=== PATIENT | male | born 1950 | race Caucasian/White ===

== ENCOUNTER 2022-05-30 09:37 | Inpatient (IN) | payer BC, MEDICARE ==
[~2022-05-30] VITALS: Ht 190.5 cm; Wt 85.3 kg
[~2022-05-30 09:37] MED LIST: Z.0.CRESTOR10 MG PO; Z.0.DEXILANT60 MG PO; Z.0.LISINOPRIL10 MG PO; Z.0.ZOLPIDEM TARTRA1 PO; [UNRECOGNIZED DRUG - OTHER] PO
[2022-05-30] MEDS ORDERED: SODIUM CHLORIDE 0.9% 1000ML 1,000 ML IV STA ×2 (10:56→12:42)
[2022-05-30 11:48] LABS: BASOPHILS % 0.4 % (0.0-1.0); EOSINOPHILS # (AUTO) 0.2 (0.0-0.4); EOSINOPHILS % 2.2 % (0.0-6.0); HEMATOCRIT 41.4 % (38.2-49.6); HEMOGLOBIN 13.3 g/dL (14.0-18.0); LYMPHOCYTES # (AUTO) 1.6 (1.0-3.2); LYMPHOCYTES % 16.3 % (18.0-39.1); MEAN CORPUSCULAR HEMOGLOBIN 32.1 pg (28-32); MEAN CORPUSCULAR HGB CONC 32.1 g/dL (31-35); MONOCYTES # (AUTO) 0.9 (0.2-0.8); MONOCYTES % 9.5 % (4.4-11.3); PLATELET COUNT 201 x10e3/uL (140-360); RED BLOOD COUNT 4.14 x10e6/uL (4.3-5.7); RED CELL DISTRIBUTION WIDTH 14.3 % (11.7-14.4)
[2022-05-30 12:10] LABS: INR 0.87; PROTHROMBIN TIME 12.7 seconds (11.9-14.5)
[2022-05-30 12:11] LABS: PARTIAL THROMBOPLASTIN TIME 24.5 seconds (23.8-35.5)
[2022-05-30 12:20] LABS: ALANINE AMINOTRANSFERASE 36 IU/L (0-55); ALBUMIN 3.9 g/dL (3.5-5.0); ALKALINE PHOSPHATASE 73 IU/L (40-150); ANION GAP 16.5 mmol/L (8-16); BLOOD UREA NITROGEN 42 mg/dL (7-26); BUN/CREATININE RATIO 13 (6-25); CALCIUM 9.9 mg/dL (8.4-10.2); CARBON DIOXIDE 28 mmol/L (22-29); CHLORIDE 97 mmol/L (98-107); CREATINE KINASE 179 IU/L (30-200); CREATININE, SERUM 3.22 mg/dL (0.72-1.25); GLUCOSE 87 mg/dL (74-118); POTASSIUM 5.5 mmol/L (3.5-5.1); SODIUM 136 mmol/L (136-145)
[2022-05-30 12:28] LABS: CLARITY,URINE SL CLOUDY (CLEAR); COLOR,URINE YELLOW (YELLOW); LEUKOCYTE ESTERASE ,URINE TRACE (NEGATIVE); NITRITE,URINE NEGATIVE (NEGATIVE); PROTEIN,URINE DIPSTICK 1+ (NEGATIVE)
[2022-05-30 12:29] LABS: BACTERIA,URINE MODERATE /HPF; EPITHELIAL CELLS,URINE FEW /LPF; KETONES,URINE TRACE (NEGATIVE); URINE UROBILINOGEN 0.2 mg/dL (0.2 - 1); WBC,URINE (MAN) >50 /HPF (0-5)
[2022-05-30] MEDS ORDERED: ONDANSETRON HCL INJ 2MG/ML 2ML 2 MG/ML VIAL IV PRN (13:00)
[2022-05-30] MEDS: SODIUM CHLORIDE 0.9% 1000ML 1,000 ML IV SCH ×2 (14:50→23:01)
[2022-05-30 22:22] VITALS: BP 149/71
[2022-05-30 22:38] VITALS: BP 149/71
[2022-05-31 04:00] VITALS: BP 148/79
[2022-05-31 04:33] LABS: CREATINE KINASE MB 1.9 ng/mL (0-5.0)
[2022-05-31 06:52] LABS: BASOPHILS % 0.5 % (0.0-1.0); EOSINOPHILS # (AUTO) 0.1 (0.0-0.4); EOSINOPHILS % 1.9 % (0.0-6.0); HEMATOCRIT 36.9 % (38.2-49.6); HEMOGLOBIN 12.1 g/dL (14.0-18.0); LYMPHOCYTES # (AUTO) 1.1 (1.0-3.2); LYMPHOCYTES % 17.4 % (18.0-39.1); MEAN CORPUSCULAR HEMOGLOBIN 32.5 pg (28-32); MEAN CORPUSCULAR HGB CONC 32.8 g/dL (31-35); MEAN CORPUSCULAR VOLUME 99.2 fL (81-99); MONOCYTES # (AUTO) 0.6 (0.2-0.8); MONOCYTES % 8.9 % (4.4-11.3); NEUTROPHILS # (AUTO) 4.5 (2.1-6.9); NEUTROPHILS % 70.8 % (38.7-80.0); PLATELET COUNT 157 x10e3/uL (140-360); RED BLOOD COUNT 3.72 x10e6/uL (4.3-5.7)
[2022-05-31 07:24] LABS: ALBUMIN 3.4 g/dL (3.5-5.0); ALBUMIN/GLOBULIN RATIO 1.4 (0.8-2.0); ANION GAP 10.8 mmol/L (8-16); CALCIUM 8.5 mg/dL (8.4-10.2); CREATININE, SERUM 1.82 mg/dL (0.72-1.25); POTASSIUM 4.8 mmol/L (3.5-5.1)
[2022-05-31 08:20] VITALS: BP 138/71
[2022-05-31] MEDS: SODIUM CHLORIDE 0.9% 1000ML 1,000 ML IV SCH ×2 (08:38→19:00)
[2022-05-31 11:44] VITALS: BP 138/71
[2022-05-31 12:33] VITALS: BP 139/66
[2022-05-31 14:08] LABS: CREATINE KINASE 94 IU/L (30-200)
[2022-05-31 16:31] VITALS: BP 149/77
[2022-05-31 20:00] VITALS: BP 139/91
[2022-06-01] VITALS: BP 153/84
[2022-06-01 04:00] VITALS: BP 144/75
[2022-06-01] MEDS: SODIUM CHLORIDE 0.9% 1000ML 1,000 ML IV SCH (05:58)
[2022-06-01 07:38] LABS: BASOPHILS % 0.3 % (0.0-1.0); EOSINOPHILS # (AUTO) 0.1 (0.0-0.4); EOSINOPHILS % 1.7 % (0.0-6.0); HEMATOCRIT 38.6 % (38.2-49.6); HEMOGLOBIN 12.6 g/dL (14.0-18.0); LYMPHOCYTES # (AUTO) 1.2 (1.0-3.2); LYMPHOCYTES % 16.2 % (18.0-39.1); MEAN CORPUSCULAR HEMOGLOBIN 32.8 pg (28-32); MEAN CORPUSCULAR HGB CONC 32.6 g/dL (31-35); MEAN CORPUSCULAR VOLUME 100.5 fL (81-99); MONOCYTES # (AUTO) 0.6 (0.2-0.8); MONOCYTES % 8.4 % (4.4-11.3); NEUTROPHILS # (AUTO) 5.5 (2.1-6.9); NEUTROPHILS % 73.1 % (38.7-80.0); PLATELET COUNT 175 x10e3/uL (140-360); RED BLOOD COUNT 3.84 x10e6/uL (4.3-5.7); RED CELL DISTRIBUTION WIDTH 13.7 % (11.7-14.4)
[2022-06-01 07:58] LABS: ANION GAP 13.9 mmol/L (8-16); CALCIUM 9.4 mg/dL (8.4-10.2); CREATININE, SERUM 1.43 mg/dL (0.72-1.25); MAGNESIUM 1.9 MG/DL (1.3-2.1); POTASSIUM 4.9 mmol/L (3.5-5.1)
[2022-06-01 08:03] VITALS: BP 147/91
[2022-06-01 08:31] LABS: FERRITIN 468.84 ng/mL (21.81-274.66)
[2022-06-01 08:38] VITALS: BP 147/91
[2022-06-01 11:58] VITALS: BP 155/82
[2022-06-01] MEDS ORDERED: LISINOPRIL10 MG PO (12:09)
== END 2022-06-01 12:38 | disposition home or self-care (01) | DRG 683 ==
LOC: ER 10:57 → ERHOLD 12:48 → MED/SURG2 22:28
DX: N17.9 Acute kidney failure, unspecified (principal); N39.0 Urinary tract infection, site not specified; I12.9 Hypertensive chronic kidney disease with stage 1 through stage 4 chronic kidney disease, or unspecified chronic kidney disease; N18.9 Chronic kidney disease, unspecified; E78.5 Hyperlipidemia, unspecified; K21.9 Gastro-esophageal reflux disease without esophagitis; Z20.822 Contact with and (suspected) exposure to COVID-19; E86.0 Dehydration; E87.5 Hyperkalemia
CPT/HCPCS: 0223U; 36415; 71045; 74176; 76770; 80048; 80053; 81001; 82550; 82553; 82607; 82728; 82746; 83540; 83735; 83880; 84466; 84484; 85025; 85610; 85730; 87086; 93005; 99284; J2185; J7030

== ENCOUNTER → 2024-12-31 | Day surgery (SDC) | payer BC, MEDICARE ==
[~2024-12-31] MED LIST changes: +CIALIS5 MG PO; +FENTANYL CITRATE/PF 100MCG/2 ML INJ ONE; +GLUCAGON FOR INJ 1 MG VIAL ONE; +HYOSCYAMINE SULFATE 0.5 MG/ML INJ ONE; +KETAMINE 50MG/5ML SYR ONE; +LIDOCAINE HCL 2% LOCAL INJ 5 ML SDV VIAL INJ ONE; +LIPITOR10 MG PO; +LISINOPRIL10 MG PO; +METOCLOPRAMIDE10 MG PO; +METOPROLOL TART50 MG PO; +MONTELUKAST SOD10 MG PO; +OMEPRAZOLE40 MG PO; +ONDANSETRON HCL INJ 2MG/ML 2ML 2 MG/ML VIAL ONE; +ONDANSETRON ODT4 MG PO; +PROPOFOL IV EMULSION 10 MG/ML 20 ML VIAL ONE; +PROPOFOL IV EMULSION 50 ML IV ONE; +ZESTRIL10 MG PO
[2024-12-31 10:25] LABS: ANION GAP 16.3 mmol/L (8-16); CALCIUM 9.7 mg/dL (8.4-10.2); CREATININE, SERUM 1.51 mg/dL (0.72-1.25)
[2024-12-31 10:32] LABS: POTASSIUM 5.3 mmol/L (3.5-5.1)
[2024-12-31] MEDS: SODIUM CHLORIDE 0.9% 1000ML 1,000 ML ONE (10:57)
[2024-12-31 12:29] VITALS: TEMP 97.9
[2024-12-31 13:00] VITALS: BP 143/87; PULSE 79; RESP 18; O2SAT 100
== END | disposition home or self-care (01) ==
LOC: OR 08:20
PROVIDERS: ATTEND Internal Medicine Gastroenterology
DX: K21.9 Gastro-esophageal reflux disease without esophagitis (principal); D12.0 Benign neoplasm of cecum; D12.2 Benign neoplasm of ascending colon; D12.3 Benign neoplasm of transverse colon; D12.4 Benign neoplasm of descending colon; K62.1 Rectal polyp; K44.9 Diaphragmatic hernia without obstruction or gangrene; K22.5 Diverticulum of esophagus, acquired; K57.30 Diverticulosis of large intestine without perforation or abscess without bleeding; K64.8 Other hemorrhoids; Z71.3 Dietary counseling and surveillance; R05.3 Chronic cough; D64.9 Anemia, unspecified; K75.9 Inflammatory liver disease, unspecified; I10 Essential (primary) hypertension; Z71.89 Other specified counseling; E78.00 Pure hypercholesterolemia, unspecified; Z01.810 Encounter for preprocedural cardiovascular examination; Z79.899 Other long term (current) drug therapy; Z68.23 Body mass index [BMI] 23.0-23.9, adult
CPT/HCPCS: 36415; 43235; 45385; 80048; 93005; J1610; J1980; J2003; J2405; J2704 ×2; J3010; J7030; 45378

== ENCOUNTER 2025-01-01 02:09 | Emergency (ER) | payer BC ==
[~2025-01-01] VITALS: Ht 198.1 cm; Wt 111.6 kg
[~2025-01-01 02:09] MED LIST changes: -FENTANYL CITRATE/PF 100MCG/2 ML INJ ONE; -GLUCAGON FOR INJ 1 MG VIAL ONE; -HYOSCYAMINE SULFATE 0.5 MG/ML INJ ONE; -KETAMINE 50MG/5ML SYR ONE; -LIDOCAINE HCL 2% LOCAL INJ 5 ML SDV VIAL INJ ONE; -METOCLOPRAMIDE10 MG PO; -ONDANSETRON HCL INJ 2MG/ML 2ML 2 MG/ML VIAL ONE; -ONDANSETRON ODT4 MG PO; -PROPOFOL IV EMULSION 10 MG/ML 20 ML VIAL ONE; -PROPOFOL IV EMULSION 50 ML IV ONE
[2025-01-01 02:10] VITALS: PULSE 71; RESP 18; TEMP 98.3
[2025-01-01 02:51] LABS: BASOPHILS % 0.3 % (0.0-1.0); EOSINOPHILS # (AUTO) 0.1 (0.0-0.4); EOSINOPHILS % 0.7 % (0.0-6.0); HEMATOCRIT 40.7 % (38.2-49.6); HEMOGLOBIN 13.7 g/dL (14.0-18.0); MEAN CORPUSCULAR HGB CONC 33.7 g/dL (31-35); MEAN CORPUSCULAR VOLUME 92.1 fL (81-99); MONOCYTES # (AUTO) 0.8 (0.2-0.8); MONOCYTES % 6.4 % (4.4-11.3); NEUTROPHILS # (AUTO) 10.1 (2.1-6.9); NEUTROPHILS % 84.2 % (38.7-80.0); PLATELET COUNT 222 x10e3/uL (140-360); RED BLOOD COUNT 4.42 x10e6/uL (4.3-5.7); WHITE BLOOD COUNT 11.95 x10e3/uL (4.8-10.8)
[2025-01-01 03:10] LABS: ALANINE AMINOTRANSFERASE 20 IU/L (0-55); ALBUMIN/GLOBULIN RATIO 1.2 (0.8-2.0); ALKALINE PHOSPHATASE 81 IU/L (40-150); ANION GAP 17.4 mmol/L (8-16); BILIRUBIN,TOTAL 0.8 mg/dL (0.2-1.2); BLOOD UREA NITROGEN 23 mg/dL (7-26); BUN/CREATININE RATIO 15 (6-25); CALCIUM 9.5 mg/dL (8.4-10.2); CARBON DIOXIDE 23 mmol/L (22-29); CHLORIDE 100 mmol/L (98-107); CREATINE KINASE 105 IU/L (30-200); CREATININE, SERUM 1.51 mg/dL (0.72-1.25); EST GLOMERULAR FILTRATION RATE 48 ML/MIN (>=60); GLUCOSE 129 mg/dL (74-118); POTASSIUM 4.4 mmol/L (3.5-5.1); SODIUM 136 mmol/L (136-145); TOTAL PROTEIN 7.4 g/dL (6.5-8.1)
[2025-01-01] MEDS: SODIUM CHLORIDE 0.9% 1000ML 1,000 ML IV SCH (03:28)
[2025-01-01] MEDS: ONDANSETRON HCL INJ 2MG/ML 2ML 2 MG/ML VIAL IV STA (03:28)
[2025-01-01 03:33] LABS: TROPONIN I < 0.001 ng/mL (0-0.300)
[2025-01-01] MEDS ORDERED: ONDANSETRON ODT4 MG PO (03:43)
[2025-01-01 04:28] VITALS: BP 129/68; PULSE 74; RESP 18; TEMP 98.3; O2SAT 100
[2025-01-03] MEDS ORDERED: METOCLOPRAMIDE10 MG PO (11:55)
== END 2025-01-01 04:00 | disposition home or self-care (01) ==
LOC: ER 02:15
DX: R11.2 Nausea with vomiting, unspecified (principal); I10 Essential (primary) hypertension; E78.5 Hyperlipidemia, unspecified; K21.9 Gastro-esophageal reflux disease without esophagitis; R94.31 Abnormal electrocardiogram [ECG] [EKG]
CPT/HCPCS: 36415; 80053; 82550; 83690; 83880; 84484; 85025; 93005; 99284; J2405; J7030

== ENCOUNTER 2025-01-01 13:38 | Inpatient (IN) | payer BC ==
[~2025-01-01] VITALS: Ht 198.1 cm; Wt 111.6 kg
[~2025-01-01 13:38] MED LIST changes: +ONDANSETRON ODT4 MG PO
[2025-01-01 13:45] VITALS: TEMP 97.9
[2025-01-01 14:24] LABS: BASOPHILS % 0.2 % (0.0-1.0); EOSINOPHILS # (AUTO) 0.1 (0.0-0.4); EOSINOPHILS % 0.5 % (0.0-6.0); HEMATOCRIT 42.1 % (38.2-49.6); LYMPHOCYTES # (AUTO) 0.9 (1.0-3.2); LYMPHOCYTES % 7.7 % (18.0-39.1); MEAN CORPUSCULAR HEMOGLOBIN 31.4 pg (28-32); MEAN CORPUSCULAR HGB CONC 33.3 g/dL (31-35); MEAN CORPUSCULAR VOLUME 94.4 fL (81-99); MONOCYTES # (AUTO) 0.6 (0.2-0.8); MONOCYTES % 5.2 % (4.4-11.3); NEUTROPHILS # (AUTO) 9.8 (2.1-6.9); PLATELET COUNT 237 x10e3/uL (140-360); RED BLOOD COUNT 4.46 x10e6/uL (4.3-5.7); RED CELL DISTRIBUTION WIDTH 15.9 % (11.7-14.4); WHITE BLOOD COUNT 11.39 x10e3/uL (4.8-10.8)
[2025-01-01] MEDS: METOCLOPRAMIDE HCL 10 MG/2ML VIAL IV ONE (14:27)
[2025-01-01 14:54] LABS: ALBUMIN 3.9 g/dL (3.5-5.0); ALBUMIN/GLOBULIN RATIO 1.1 (0.8-2.0); ANION GAP 16.2 mmol/L (8-16); BILIRUBIN,TOTAL 0.9 mg/dL (0.2-1.2); CALCIUM 9.4 mg/dL (8.4-10.2); CREATININE, SERUM 1.49 mg/dL (0.72-1.25); POTASSIUM 4.2 mmol/L (3.5-5.1); TOTAL PROTEIN 7.4 g/dL (6.5-8.1)
[2025-01-01 17:00] VITALS: PULSE 99; RESP 16
[2025-01-01] MEDS ORDERED: ONDANSETRON HCL INJ 2MG/ML 2ML 2 MG/ML VIAL IV PRN (17:15)
[2025-01-01] MEDS ORDERED: METOCLOPRAMIDE HCL 10 MG/2ML VIAL IV PRN (17:15)
[2025-01-01 18:04] VITALS: BP 121/6; PULSE 109; RESP 18; TEMP 99.3; O2SAT 100
[2025-01-01] MEDS: SODIUM CHLORIDE 0.9% 1000ML 1,000 ML IV SCH (18:23)
[2025-01-01 20:00] VITALS: BP 162/72; PULSE 103; RESP 18; TEMP 98.3; O2SAT 98
[2025-01-02] VITALS (9 sets, daily range): BP systolic 105–159; BP diastolic 58–84; PULSE 85–105; RESP 17–18; TEMP 97.5–99.4; O2SAT 97–100
[2025-01-02] MEDS: METOCLOPRAMIDE HCL 10 MG/2ML VIAL IV SCH (00:32)
[2025-01-02 06:29] LABS: BASOPHILS % 0.4 % (0.0-1.0); EOSINOPHILS # (AUTO) 0.1 (0.0-0.4); EOSINOPHILS % 1.4 % (0.0-6.0); HEMATOCRIT 38.7 % (38.2-49.6); HEMOGLOBIN 12.6 g/dL (14.0-18.0); LYMPHOCYTES # (AUTO) 1.4 (1.0-3.2); LYMPHOCYTES % 14.2 % (18.0-39.1); MEAN CORPUSCULAR HEMOGLOBIN 31.8 pg (28-32); MEAN CORPUSCULAR HGB CONC 32.6 g/dL (31-35); MEAN CORPUSCULAR VOLUME 97.7 fL (81-99); MONOCYTES # (AUTO) 0.8 (0.2-0.8); MONOCYTES % 7.8 % (4.4-11.3); NEUTROPHILS # (AUTO) 7.7 (2.1-6.9); NEUTROPHILS % 75.7 % (38.7-80.0); PLATELET COUNT 184 x10e3/uL (140-360); RED BLOOD COUNT 3.96 x10e6/uL (4.3-5.7); RED CELL DISTRIBUTION WIDTH 16.2 % (11.7-14.4); WHITE BLOOD COUNT 10.11 x10e3/uL (4.8-10.8)
[2025-01-02 07:00] LABS: ALBUMIN 3.2 g/dL (3.5-5.0); ALBUMIN/GLOBULIN RATIO 1.1 (0.8-2.0); ANION GAP 11.9 mmol/L (8-16); BILIRUBIN,TOTAL 0.8 mg/dL (0.2-1.2); CALCIUM 8.3 mg/dL (8.4-10.2); CREATININE, SERUM 1.18 mg/dL (0.72-1.25); POTASSIUM 3.9 mmol/L (3.5-5.1)
[2025-01-02 11:00] LABS: EOSINOPHILS % (MANUAL) 2 % (0-7); LYMPHOCYTES % (MANUAL) 10 % (19-48); MONOCYTES % (MANUAL) 3 % (3.4-9.0); NEUTROPHILS % (MANUAL) 85 % (40-74); PLATELET ESTIMATE ADEQUATE; PLATELET MORPHOLOGY COMMENT NORMAL; RBC MORPHOLOGY COMMENT NORMAL
[2025-01-02] MEDS ORDERED: ACETAMINOPHEN 325 MG TAB PO PRN (14:00)
[2025-01-02] MEDS ORDERED: BISACODYL 10 MG SUPP PR PRN (14:00)
[2025-01-02] MEDS: ATORVASTATIN 10 MG TAB PO SCH (22:00)
[2025-01-02] MEDS: METOPROLOL TARTRATE 50 MG TAB PO SCH (22:00)
[2025-01-03 03:42] VITALS: BP 153/82; PULSE 87; RESP 18; TEMP 98; O2SAT 98
[2025-01-03 07:58] LABS: BASOPHILS % 0.4 % (0.0-1.0); EOSINOPHILS # (AUTO) 0.2 (0.0-0.4); EOSINOPHILS % 2.2 % (0.0-6.0); HEMATOCRIT 36.7 % (38.2-49.6); HEMOGLOBIN 12.3 g/dL (14.0-18.0); LYMPHOCYTES # (AUTO) 1.3 (1.0-3.2); LYMPHOCYTES % 12.4 % (18.0-39.1); MEAN CORPUSCULAR HEMOGLOBIN 31.5 pg (28-32); MEAN CORPUSCULAR HGB CONC 33.5 g/dL (31-35); MEAN CORPUSCULAR VOLUME 93.9 fL (81-99); MONOCYTES # (AUTO) 0.7 (0.2-0.8); MONOCYTES % 6.8 % (4.4-11.3); NEUTROPHILS # (AUTO) 8.3 (2.1-6.9); NEUTROPHILS % 77.8 % (38.7-80.0); PLATELET COUNT 168 x10e3/uL (140-360); RED BLOOD COUNT 3.91 x10e6/uL (4.3-5.7); RED CELL DISTRIBUTION WIDTH 16.1 % (11.7-14.4); WHITE BLOOD COUNT 10.64 x10e3/uL (4.8-10.8)
[2025-01-03 08:15] LABS: ALBUMIN/GLOBULIN RATIO 1.1 (0.8-2.0); CALCIUM 8.3 mg/dL (8.4-10.2); CREATININE, SERUM 1.06 mg/dL (0.72-1.25); MAGNESIUM 1.5 MG/DL (1.3-2.1); TOTAL PROTEIN 5.8 g/dL (6.5-8.1)
[2025-01-03 08:32] VITALS: BP 144/78; PULSE 78; RESP 18; TEMP 97.6; O2SAT 100
[2025-01-03 08:43] VITALS: BP 144/78; PULSE 78; RESP 18; TEMP 97.6; O2SAT 100
[2025-01-03] MEDS: SENNOSIDES 8.6 MG TAB PO SCH (09:00)
[2025-01-03] MEDS: DOCUSATE SODIUM 100 MG CAP PO SCH (09:00)
[2025-01-03] MEDS: MONTELUKAST SODIUM 10 MG TAB PO SCH (09:00)
[2025-01-03] MEDS: LISINOPRIL 10 MG TAB PO SCH (09:38)
[2025-01-03] MEDS ORDERED: METOCLOPRAMIDE10 MG PO (11:55)
[2025-01-03 12:05] VITALS: BP 146/72; PULSE 74; RESP 20; TEMP 97.8; O2SAT 96
== END 2025-01-03 14:47 | disposition home or self-care (01) | DRG 392 ==
LOC: ER 13:45 → ERHOLD 17:02 → MED/SURG3 17:43 → OBSVTOIN 01-03 09:13
PROVIDERS: ADMIT Internal Medicine; ATTEND Internal Medicine
DX: K22.5 Diverticulum of esophagus, acquired (principal); N17.9 Acute kidney failure, unspecified; R11.2 Nausea with vomiting, unspecified; I10 Essential (primary) hypertension; K21.9 Gastro-esophageal reflux disease without esophagitis; E78.2 Mixed hyperlipidemia; Z86.0100 Personal history of colon polyps, unspecified
CPT/HCPCS: 36415; 36568; 80053; 83690; 83735; 85025; 99284; G0378; J2470; J2765; J7030